=== PATIENT | female | born 1950 | race Caucasian/White ===

== ENCOUNTER → 2021-09-16 | Outpatient (CLI) | payer OTHER, MEDICARE ==
[~2021-09-16] MED LIST: ASA81BEC PO; ATORVASTATIN CA80 MG PO; CARVEDILOL3.125 MG PO; HYDROCHLOROTHIA25 M1 PO; LOSARTAN POTASS50 MG PO
== END ==
LOC: LAB 05:18
PROVIDERS: ATTEND Student in an Organized Health Care Education/Training Program
DX: Z01.812 Encounter for preprocedural laboratory examination (principal); Z20.822 Contact with and (suspected) exposure to COVID-19

== ENCOUNTER → 2021-09-18 | Outpatient (CLI) | payer OTHER ==
[~2021-09-18] VITALS: Ht 167.6 cm; Wt 68.0 kg
--- NOTE | ~2021-09-18 | P ---
[facility] [place] [address] PROCEDURE REPORT Name: KEVON FARIAS Room #: [facility].#: [id number] Admission: 09/18/21 Attend Phys: Jose Elias Reynoso Discharge: Date of : 54 Report #: [id number] THIS REPORT FOR: cc: Rajwinder Dumont MD, Elizabeth A. MD McElhinney, Christian C. MD ~ cc: Rajwinder Dumont MD DATE OF SERVICE: 09/18/2021 PROCEDURE PERFORMED: Colonoscopy with polypectomy. HISTORY OF PRESENT ILLNESS: The patient is a 71-year-old female who underwent a colonoscopy by myself in 2016, which showed diverticulosis, otherwise negative. She had an episode of diverticulitis. Her first episode in February of this year, was treated with antibiotics and symptoms resolved. She is here for repeat colonoscopy today. She denies any symptoms, no family history of colon cancer. DESCRIPTION OF PROCEDURE: The risks and benefits of the procedure were explained to the patient, those risks including but not limited to bleeding, perforation and the risk of sedation. She understood these risks and gave informed consent. Sedation was given using propofol per anesthesia. Next, a digital rectal exam was initially performed, which was normal. Next, using a standard Olympus colonoscope, the scope was placed in the patient's anus and advanced under direct vision to the cecum. The overall prep was excellent. The cecum and ileocecal valve are normal in appearance. The ascending colon was normal. In the transverse colon, a 6-mm sessile polyp was noted. This was removed by snare cautery, otherwise normal. The descending colon was normal. Multiple diverticula were noted in the sigmoid colon. No evidence of inflammation, otherwise normal. The rectal mucosa was normal. No abnormalities were noted on retroflexion. The scope was then withdrawn and the procedure terminated. The patient tolerated the procedure well. IMPRESSION: 1. Transverse colon polyp. 2. Sigmoid diverticulosis. No evidence of inflammation. 3. Otherwise, normal colonoscopy. RECOMMENDATIONS: 1. Await biopsy results. 2. If polyp is hyperplastic, repeat in 10 years; if adenomatous polyp, repeat in [address] [address] PROCEDURE REPORT Name: KEVON FARIAS Christina Room #: [facility].#: [id number] Admission: 09/18/21 Attend Phys: Jose Elias Reynoso Discharge: Date of : 54 Report #: [id number] Thank you for allowing me to participate in her care. By: [id number] Jose Elias Myles MD /nt
--- NOTE | 2021-09-20 13:08 | PATH ---
[facility] [address] [place] [address] PATHOLOGY RPT PROCEDURE Name: MAYTE MARIE Room #: REG [facility].#: [id number] Admission: 09/18/21 Date of : 54 Discharge: Report #: [id number] Path Case #: [id number] [facility] Accession Number: [id number] . 01 Material submitted: . colon - TRANSVERSE COLON POLYP. Modifiers: transverse . 01 Clinical history: . COLONOSCOPY DIVERTICULOSIS, SCREENING . 02 Diagnosis: Transverse colon polyp, polypectomy: - Tubular adenoma. - Negative for high-grade dysplasia or malignancy. (ANK:pit; 09/20/2021) QTP 09/20/2021 1053 Local . 02 Electronically signed: . Sharee Cook MD, Pathologist NPI- [id number] . 01 Gross description: . The specimen is received in formalin, labeled "Mayte Marie, transverse colon polyp". Received are 2, pfeiffer, soft tissue fragments, measuring 0.2 and 1.1 cm, in greatest dimension. The specimen is entirely submitted in cassette A1. (JGG; 09/19/2021) JGG/JGG 09/19/2021 1038 Local . 02 Pathologist provided ICD-10: D12.3 . 02 CPT . 848857 Specimen Comment: A courtesy copy of this report has been sent to [phone] Specimen Comment: [phone] Specimen Comment: Report sent to / DR GRIGGS Performed at: [address] [facility], [place], [place] [id number] MD Michael Ram MD Phone: [phone] Performed at: [address] [id number] MD Sharee Cook MD Phone: [phone]
== END | disposition home or self-care (01) ==
LOC: GI 07-17 10:28
PROVIDERS: ATTEND Specialist
DX: K63.5 Polyp of colon (principal); K57.30 Diverticulosis of large intestine without perforation or abscess without bleeding; I10 Essential (primary) hypertension; E78.00 Pure hypercholesterolemia, unspecified; F32.9 Major depressive disorder, single episode, unspecified; F41.9 Anxiety disorder, unspecified; Z98.890 Other specified postprocedural states; Z79.899 Other long term (current) drug therapy
CPT/HCPCS: 62110; 62900